=== PATIENT | female | born 1995 | race Caucasian/White ===

== ENCOUNTER 2018-07-26 22:58 | Emergency (ER) | payer OTHER, SELFPAY ==
[2018-07-26 23:06] VITALS: BP 103/66; PULSE 67; RESP 18; O2SAT 100; BMI 20.3
--- NOTE | 2018-07-26 23:26 | DI.RAD.S_ITS ---
PROCEDURE: XR CHEST 2V INDICATIONS: cough/fever/chest tightness TECHNIQUE: 2 views of the chest were acquired. COMPARISON: None. FINDINGS: Surgical changes and devices: None. Lungs and pleura: No pleural effusions or pneumothorax. Lungs are clear. Mediastinum: Mediastinal contours are normal. Heart size is normal. Bones and chest wall: No suspicious bony abnormalities. Soft tissues appear unremarkable. IMPRESSION: No acute cardiopulmonary disease. Dictated by: Bird Singletary M.D. on 07/27/2018 at 9:25 Approved by: Bird Singletary M.D. on 07/27/2018 at 9:26
--- NOTE | 2018-07-26 23:38 | PC.NURSE ---
reports fever/bodyaches for 1 week, seen by pcp, finished zithromax 2 days ago, diarrhea began today, reports sore throat for several days with slight cough, breathing feels tight, clear breath sounds, speaking in full sentences
[2018-07-26 23:48] LABS: Strep Grp A by PCR Rapid Negative
--- NOTE | 2018-07-27 00:43 | ED.NAVMDI ---
HPI - Nausea/Vomiting/Diarrhea General Chief complaint: Nausea/Vomiting/Diarrhea Stated complaint: sick,vomiting Time Seen by Provider: 07/27/18 00:35 Source: patient Mode of arrival: ambulatory Limitations: no limitations History of Present Illness HPI Narrative: Patient states that a week and half ago she was sick for 4 days with fevers and a sore throat. She states she was placed on antibiotics and felt better for several days, but now, she has had nausea and vomiting over the last 24 hr. Patient states that the nausea has subsided for the most part now, but she does have a little bit of a scratchy throat and headache. Patient states that she had some chest pressure and pain while vomiting and her significant other states that this is why he brought her to the emergency department. Related Data Allergies Allergy/AdvReac Type Severity Reaction Status Date / Time Penicillins Allergy Rash Verified 07/26/18 23:11 Review of Systems Review of Systems All systems reviewed & are unremarkable except as noted in HPI and below Constitutional Denies chills, Denies fever(s), Denies lethargy and Denies weakness Eyes Denies change in vision, Denies eye discharge, Denies irritation and Denies loss of vision ENT Ears, Nose, Mouth, and Throat: Denies change in voice, Denies neck pain and Reports sore throat Cardiovascular Denies chest pain, Denies irregular heart rhythm, Denies lightheadedness, Denies palpitations, Denies dyspnea, Denies dyspnea on exertion and Denies orthopnea Respiratory Denies cough, Denies dyspnea, Denies dyspnea on exertion and Denies wheezing Gastrointestinal Gastrointestinal: Denies abdominal pain, Denies change in bowel habits, Denies diarrhea, Reports nausea and Reports vomiting Genitourinary Denies hematuria, Denies flank pain, Denies urinary incontinence and Denies urinary urgency Musculoskeletal Denies neck pain Integumentary/Breasts Denies pruritus, Denies erythema, Denies rash and Denies wounds Neurologic Denies confusion, Denies loss of vision and Denies weakness Psychiatric Denies anxiety, Denies confusion, Denies depression, Denies homicidal ideation and Denies suicidal ideation Endocrine Denies palpitations Hematologic/Lymphatic Denies easy bruising Allergic/Immunologic Denies wheezing [facility] Medical History Acute viral syndrome (Acute) Surgical History No pertinent past surgical history (Acute) Social History Smoking Status: Never smoker Exam Initial Vital Signs Initial Vital Signs: Vital Signs Pulse Rate 67 07/26/18 23:06 Respiratory Rate 18 07/26/18 23:06 Blood Pressure 103/66 07/26/18 23:06 Pulse Oximetry 100 07/26/18 23:06 Const General: cooperative and well developed Nutritional Appearance: well nourished Orientation: alert, awake, oriented x3 and not confused [facility] Head: normocephalic and atraumatic Ears: external ears normal and TM's normal bilaterally Nose: external nose normal and No nasal discharge Face and sinus: sinuses nontender, face symmetric, no sinus tenderness and No dry mucous membranes Mouth: oral mucosae normal and moist mucous membranes Teeth and gingiva: dentition normal Throat: tonsils normal and uvula midline Eyes General: appearance normal, both eyes and all related structures Eyelids: eyelids normal Conjunctivae: conjunctivae normal Sclera: sclerae normal Pupils: PERRL EOM: EOM intact bilaterally Neck Neck: normal visual inspection, trachea midline, No lymphadenopathy, No midline deformity and No JVD Lymphatic: No lymphedema Chest Chest: normal inspection of the chest Resp Effort & Inspection: normal respiratory effort, able to speak in complete sentences, no respiratory distress and no use of accessory muscles Auscultation: clear to auscultation bilaterally, no rales, no rhonchi and no wheezes Cardio Rate: regular rate Rhythm: regular rhythm Heart Sounds: no click, no gallops, no murmurs and no rubs Pulses: normal peripheral pulses GI Inspection: non-distended Palpation: soft, no hepatosplenomegaly, No guarding, No pulsatile mass and No tender Auscultation: normal bowel sounds Back/Spine/Pelvis Back: No CVA tenderness Cervical Spine: cervical ROM normal and No pain with cervical ROM Thoracic/Lumbar Spine: thoracic and lumbar spine normal to inspection Skin General: no rashes or lesions noted, No jaundice and No petechiae Neuro General: alert, oriented x3, gait normal and no focal motor deficits Speech: speech normal Extrem General: full ROM, no clubbing, cyanosis or edema, no pedal edema and no calf tenderness Psych Appearance: well kempt Mental Status: mental status grossly normal Attitude: cooperative Thought Content: normal and suicidality Judgment: judgment good Course Course Narrative: Patient was stable throughout her stay in the emergency department. She declined symptomatic intervention. She was worked up with chest x-ray and rapid strep, both of which were negative. No emergent condition was identified, and I felt she was stable for discharge home. Orders Ordered: ED Orders 07/26/18 23:26 Chest [XR chest 2V] Stat 07/26/18 23:28 Strep Grp A by PCR Rapid Stat Vital Signs - 8 hr 07/26/18 23:06 Pulse Rate 67 Respiratory Rate 18 Blood Pressure 103/66 Pulse Oximetry 100 MDM - Nausea/Vomiting/Diarrhea Medical Records Attestation: I reviewed the patient's medical records. Lab Data Attestation: I reviewed the patient's lab results. Lab Results 07/26/18 Range/Units 23:28 Group A Strep (PCR) Negative Point of Care Testing Test Results Negative Urine Dip Bedside Urine Glucose Negative Bedside Urine Bilirubin - Negative Bedside Urine Ketone - Negative Urine Specific Ernul 1.010 Bedside Urine Occult Blood - Negative Bedside Urine pH 6.0 Bedside Urine Protein - Negative Bedside Urine Urobilinogen - Negative Bedside Urine Nitrite - Negative Bedside Urine Leukocytes - Negative Esterase Imaging Data Chest x-ray: Attestation: I personally reviewed and interpreted this imaging study as follows: My impression: Negative Radiologist's impression: PROCEDURE: XR CHEST 2V INDICATIONS: cough/fever/chest tightness TECHNIQUE: 2 views of the chest were acquired. COMPARISON: None. FINDINGS: Surgical changes and devices: None. Lungs and pleura: No pleural effusions or pneumothorax. Lungs are clear. Mediastinum: Mediastinal contours are normal. Heart size is normal. Bones and chest wall: No suspicious bony abnormalities. Soft tissues appear unremarkable. IMPRESSION: No acute cardiopulmonary disease. Dictated by: Bird Singletary M.D. on 07/27/2018 at 9:25 Approved by: Bird Singletary M.D. on 07/27/2018 at 9:26 Discharge Plan Departure Patient Disposition: Home Clinical Impression: Acute viral syndrome Discharge Date/Time: 07/27/18 01:03 Interventions: ED Discharge Assessment Last Done: 07/27/18 01:03 Instructions: DI for Viral Syndrome Activity Restrictions/Additional Instructions: Your chest x-ray, urinalysis, and strep test all looked good. You most likely have one of the many viruses that go around this time of year. This will go away on its own over the next several days to 1 week. Please be sure to drink plenty of fluids, and get plenty of rest. Referrals: [facility] [Provider Group] (Please follow up as needed.)
[2018-07-27 01:03] VITALS: BP 105/69; PULSE 85; RESP 14; O2SAT 99
== END 2018-07-27 01:03 | disposition home or self-care (01) ==
PROVIDERS: Emergency Provider Emergency Medicine
DX: B34.9 Viral infection, unspecified (principal)
CPT/HCPCS: 71046; 81003; 81025; 87651; 99282; 99284